=== PATIENT | male | born 1995 | race African-American/Black ===

== ENCOUNTER 2018-10-20 09:08 | Emergency (ER) | payer OTHER ==
[~2018-10-20] VITALS: Ht 157.5 cm; Wt 43.1 kg
[2018-10-20 10:10] VITALS: BP 136/84
--- NOTE | 2018-10-20 10:44 | PHYS DOC ---
Adult General Chief Complaint Chief Complaint: MECHANICAL FALL HPI HPI 23-year-old male presents to ER via POV following a mechanical fall. Patient's caretakers Berenice is at bedside reporting patient lives in assisted care facility and is nonmobile- w/c bound and nonverbal. She reports around 7 AM this morning patient slipped out of his wheelchair while going down the ramp causing him to fall onto the concrete. Patient has abrasions to the right side of his face and bilateral hands. She denies loss of consciousness or change in since behavior. She reports patient has been eating denying any vomiting episodes. She reports patient is up-to-date on tetanus. She reports pt has had swelling to his lt ring finger and rt index/middle finger- along with abrasion to rt shoulder and so brought him in for hand/shoulder xray. Review of Systems Review of Systems Patient is nonverbal and unable to provide review of systems Allergies Allergies Allergies Coded Allergies Type Severity Reaction Last Updated Verified No Known Drug Allergies 10/20/18 No Physical Exam Physical Exam Constitutional: Well developed, well nourished, no acute distress, non-toxic appearance. Smiling during exam HENT: Normocephalic, abrasion to right cheek- no palp deformity/crepitus- no orbital swelling/ecchymosis, bilateral ears normal, oropharynx moist, no oral injury, nose normal. [] Eyes: PERRLA, no nystagmus, conjunctiva normal, no discharge. [] Neck: Normal range of motion, no moaning/grimacing w/palp. of mid line cspine- no palp deformity/crepitus, supple, no stridor. Trachea mid line Cardiovascular: Heart rate regular rhythm, no murmur [] Lungs & Thorax: Bilateral breath sounds clear to auscultation- resp. equal/nonlabored Abdomen: Bowel sounds normal, soft, no distention/rigidity Skin: Warm, dry Back: No moaning/grimacing on palp. of mid line spine- no palp. deformity or visible injury Extremities: Pelvis stable. No cyanosis, no clubbing, ROM performed of all extremities- pt w/no grimacing or moaning with movements, no edema. Abrasion to rt anterior shoulder without swelling/deformity. ROM intact. 2+ radial bilat. 2+ bilat. dorsalis pedis Neurologic: Alert and oriented to norm per his caregiver services home at bedside, normal motor function, normal sensory function, no focal deficits noted. [] Psychologic: Mood normal per caregiver services home- pt is smiling Current Patient Data Vital Signs Vital Signs Date Time Temp Pulse Resp B/P (MAP) Pulse Ox O2 Delivery O2 Flow Rate FiO2 10/20/18 10:10 99.3 100 16 136/84 (101) 97 Room Air 99.3 EKG EKG [] Radiology/Procedures Radiology/Procedures PROCEDURE: FINGER(S) LEFT Left fingers, right hand and right shoulder radiograph 10/20/2018 10:39 AM INDICATION: Fall with right shoulder pain and hand pain with laceration. Laceration to the fourth digit of left hand. COMPARISON: None available. TECHNIQUE: 3 views of the left fourth digit, 3 views the right hand and 2 views the right shoulder are provided. FINDINGS: Right shoulder: There is no acute fracture or dislocation. Bone mineralization is within normal limits. Joint spaces are maintained. Regional soft tissues are within normal limits. There is no soft tissue gas or osseous erosion. Right hand: There is no acute fracture or dislocation. Bone mineralization is within normal limits. Joint spaces are maintained. Mild soft tissue swelling involving the second and third digits. Left finger: There may be a nondisplaced fracture involving the base of the distal phalanx of the fourth digit. Joint spaces are maintained. No subcutaneous gas or osseous erosion. IMPRESSION: 1. There may be a nondisplaced fracture involving the base of the distal phalanx of the fourth digit. Correlate with point tenderness. 2. No acute fracture or dislocation involving the right shoulder and right hand. Electronically signed by: Parth Gomez MD (10/20/2018 11:11 AM) [id number] DICTATED and SIGNED BY: PARTH GOMEZ MD DATE: 10/20/18 1111 Course & Med Decision Making Course & Med Decision Making Pertinent Imaging studies reviewed. (See chart for details) Pt was evaluated in the ER after fall from his w/c and caregiver services home had concerns for broken finger as he has swelling/abrasions to bilat. hands. Pt had xrays obtained with no acute findings rt shoulder xray- soft tissue swelling reported rt 2-3rd fingers no acute fx. Lt ring finger xray with report of possible " nondisplaced fracture involving the base of the distal phalanx"- this was discussed along with plans to apply aluminum splint and to have f/u with orthopedic or PCP for re-eval. Further discussed pt's facial abrasion to left cheek- discussed CT for further eval as pt is nonverbal- pt's caregiver services home reports pt has close monitoring and he is NL on mental status. She is comfortable with no CT as he has been acting appropr. since injury. Education provided on head injury- s&s to return to ER for- wound care and pt to have f/u for re-eval. on lt hand injury. He remains PMS all extremities- he tolerated application of aluminum splint as RN was at bedside during discussion applying. He is smiling and in no distress. Discharge instructions were discussed. Dragon Disclaimer Rocael Disclaimer This electronic medical record was generated, in whole or in part, using a voice recognition dictation system. Departure Departure Impression: Primary Impression: Fall Additional Impressions: Abrasions of multiple sites Finger fracture, left Disposition: 01 HOME, SELF-CARE Condition: STABLE Referrals: JOHANNA GRADY II, MD Patient Instructions: Abrasions, Fall Prevention and Home Safety, Finger Fracture, Wound Care, [id number] Additional Instructions: Monitor abrasions for signs of infection. Apply triple antibiotic ointment 2-3 times daily to sites. Keep wounds dry and clean. X-ray showed you had a possible finger fracture where aluminum splint and follow-up with orthopedic doctor with concerns. Follow-up with primary care physician with any concerns and for reevaluation of wounds. Problem Qualifiers NICKOLAS REESE APRN Oct 20, 2018 10:44
--- NOTE | 2018-10-20 11:13 | RAD ---
Left fingers, right hand and right shoulder radiograph 10/20/2018 10:39 AM INDICATION: Fall with right shoulder pain and hand pain with laceration. Laceration to the fourth digit of left hand. COMPARISON: None available. TECHNIQUE: 3 views of the left fourth digit, 3 views the right hand and 2 views the right shoulder are provided. FINDINGS: Right shoulder: There is no acute fracture or dislocation. Bone mineralization is within normal limits. Joint spaces are maintained. Regional soft tissues are within normal limits. There is no soft tissue gas or osseous erosion. Right hand: There is no acute fracture or dislocation. Bone mineralization is within normal limits. Joint spaces are maintained. Mild soft tissue swelling involving the second and third digits. Left finger: There may be a nondisplaced fracture involving the base of the distal phalanx of the fourth digit. Joint spaces are maintained. No subcutaneous gas or osseous erosion. IMPRESSION: 1. There may be a nondisplaced fracture involving the base of the distal phalanx of the fourth digit. Correlate with point tenderness. 2. No acute fracture or dislocation involving the right shoulder and right hand. Electronically signed by: Criselda Gomez MD (10/20/2018 11:11 AM) [id number]
== END 2018-10-20 12:48 | disposition home or self-care (01) ==
LOC: ER 09:08
DX: S62.665A Nondisplaced fracture of distal phalanx of left ring finger, initial encounter for closed fracture (principal); S00.81XA Abrasion of other part of head, initial encounter; S60.512A Abrasion of left hand, initial encounter; S60.511A Abrasion of right hand, initial encounter; M25.511 Pain in right shoulder; W05.0XXA Fall from non-moving wheelchair, initial encounter; Y93.89 Activity, other specified; Y92.89 Other specified places as the place of occurrence of the external cause; Y99.8 Other external cause status
CPT/HCPCS: 29130; 73030; 73130; 73140; 99283